=== PATIENT | male | born 1995 | race Asian ===

== ENCOUNTER 2020-07-03 02:00 | Emergency (ER) | payer OTHER ==
[~2020-07-03] VITALS: Ht 172.7 cm; Wt 119.3 kg
[2020-07-03 02:25] VITALS: BP 180/70
--- NOTE | 2020-07-03 02:39 | NUR ---
PT AMBULATED TO LOBBY TO A/W BED
[2020-07-03] MEDS ORDERED: KETOROLAC 30 MG/ML VIAL IM ONE (03:00)
--- NOTE | 2020-07-03 03:00 | NUR ---
ERMD ASSESSING PATIENR IN LOBBY.
--- NOTE | 2020-07-03 03:26 | NUR ---
PT AMBULATED TO CHAIR A.
--- NOTE | 2020-07-03 03:34 | NUR ---
PATIENT GIVEN TORADL IM FOR 5/10 R LEG PAIN. PATIENT TOLERATED WELL.
--- NOTE | 2020-07-03 04:06 | NUR ---
PT TAKEN TO ULTRASOUND VIA WHEELCHAIR.
--- NOTE | 2020-07-03 04:51 | NUR ---
PT RETURNED FROM ULTRASOUND VIA WHEELCHAIR TO CHAIR A.
[2020-07-03 06:00] VITALS: BP 156/88
--- NOTE | 2020-07-03 06:00 | NUR ---
Patient discharged with v/s stable. Written and verbal after care instructions given and explained. Patient verbalized understanding. Ambulatory with steady gait. All questions addressed prior to discharge. Advised to follow up with PMD.
== END 2020-07-03 06:00 | disposition home or self-care (01) ==
LOC: MED 02:00
DX: M25.561 Pain in right knee (principal)
CPT/HCPCS: 93971; 96372; 99284; J1885

== ENCOUNTER 2021-11-30 01:33 | Emergency (ER) | payer OTHER ==
[~2021-11-30] VITALS: Ht 172.7 cm; Wt 118.4 kg
[2021-11-30 01:41] VITALS: BP 182/125
--- NOTE | 2021-11-30 01:47 | NUR ---
PATIENT AMBULATORY TO BED
--- NOTE | 2021-11-30 01:56 | NUR ---
Patient BIB by family/friend. C/O right knee pain x 3 days. Patient reported, had right knee pain for 2-3 days, denied injury or trama to right knee, twisted his right ankle before.
--- NOTE | 2021-11-30 02:12 | NUR ---
Dr. Feng examining patient.
--- NOTE | 2021-11-30 02:13 | NUR ---
ER MD AT BEDSIDE EXAMINING PATIENT
[2021-11-30] MEDS ORDERED: KETOROLAC 30 MG/ML VIAL IM ONE (02:15)
--- NOTE | 2021-11-30 03:19 | NUR ---
Patient discharged with v/s stable. Written and verbal after care instructions given and explained for Acute Knee Pain, Adult. Patient verbalized understanding. Ambulatory with steady gait. All questions addressed prior to discharge. Advised to follow up with PMD.
== END 2021-11-30 03:19 | disposition home or self-care (01) ==
LOC: MED 01:33
DX: M25.561 Pain in right knee (principal)
CPT/HCPCS: 73562; 96372; 99283; J1885; Q0092

== ENCOUNTER 2021-12-04 23:06 | Emergency (ER) | payer OTHER ==
[~2021-12-04] VITALS: Ht 172.7 cm; Wt 120.4 kg
[2021-12-04 23:41] VITALS: BP 172/143
--- NOTE | 2021-12-04 23:54 | NUR ---
W/C TO BED 08.
--- NOTE | 2021-12-05 00:55 | NUR ---
ERMD AT BEDSIDE
--- NOTE | 2021-12-05 01:00 | NUR ---
26 Y/O MALE BIB SELF FOR RT KNEE PAIN ON/OFF FOR SEVERAL WEEKS, PT STATES HE CAME HERE A COUPLE WEEKS AGO FOR SAME THING. PT STATES A COUPLE ONTHS AGO HE FELL AT [facility] .PT STATES IT HURTS TO WALK , PAIN8/10. PT STATES HE ELEVATED , AND ICED KNEE BUT PAIN WAS TOO GREAT. RT KNEE HAS SLIGHT NON PITTING SWELLING. DENIES N/V/D; SKIN IS PINK/WARM/DRY; AAOX4 WITH EVEN AND STEADY GAIT; PMH:SPRAINED ANKLES, BURSITIS
[2021-12-05] MEDS: HYDROcodone/APAP 5/325 MG 1 TAB TAB PO ONE (01:10)
[2021-12-05] MEDS: KETOROLAC 30 MG/ML VIAL IM ONE (01:12)
--- NOTE | 2021-12-05 01:21 | NUR ---
PT TO CT
--- NOTE | 2021-12-05 01:31 | NUR ---
PT BACK FROM CT
[2021-12-05] MEDS ORDERED: NAPR-54 PO ×2 (03:39→03:40)
[2021-12-05 03:45] VITALS: BP 164/92
--- NOTE | 2021-12-05 03:45 | NUR ---
Patient discharged with v/s stable. Written and verbal after care instructions given and explained. Patient alert, oriented and verbalized understanding of instructions. Ambulatory with steady gait WITH CRUTCHES. All questions addressed prior to discharge. ID band removed. Patient advised to follow up with PMD. Rx of NAPROSYN given. Opportunity to ask questions provided and answered.
== END 2021-12-05 03:45 | disposition home or self-care (01) ==
LOC: MED 23:06
DX: S83.91XA Sprain of unspecified site of right knee, initial encounter (principal); Z72.89 Other problems related to lifestyle; W18.30XA Fall on same level, unspecified, initial encounter; Y93.89 Activity, other specified; Y92.89 Other specified places as the place of occurrence of the external cause; Y99.8 Other external cause status
CPT/HCPCS: 73700; 96372; 99285; J1885

== ENCOUNTER 2022-08-25 13:40 | Emergency (ER) | payer OTHER ==
[~2022-08-25] VITALS: Ht 175.3 cm; Wt 90.7 kg
[~2022-08-25 13:40] MED LIST: NAPR-54 PO
[2022-08-25 13:41] VITALS: BP 155/99
[2022-08-25] MEDS ORDERED: IBUPROFEN 600 MG TAB PO ONE (15:40)
--- NOTE | 2022-08-25 16:00 | NUR ---
NA FOR MEDS 1600
[2022-08-25] MEDS ORDERED: LID5T TP (16:24)
[2022-08-25] MEDS ORDERED: IBUP-2213 PO (16:24)
[2022-08-25] MEDS ORDERED: CYCL-711 PO (16:24)
--- NOTE | 2022-08-25 16:58 | NUR ---
Patient discharged with v/s stable. Written and verbal after care instructions given and explained. Patient alert, oriented and verbalized understanding of instructions. Ambulatory with steady gait. All questions addressed prior to discharge. ID band removed. Patient advised to follow up with PMD. Rx of FLEXERIL, IBUPROFEN, LIDOCAINE (SENT) given. Patient educated on indication of medication including possible reaction and side effects. Opportunity to ask questions provided and answered.
[2022-08-25 17:00] VITALS: BP 155/99
== END 2022-08-25 16:58 | disposition home or self-care (01) ==
LOC: MED 13:40
DX: S30.0XXA Contusion of lower back and pelvis, initial encounter (principal); Z79.1 Long term (current) use of non-steroidal anti-inflammatories (NSAID); V89.2XXA Person injured in unspecified motor-vehicle accident, traffic, initial encounter; Y93.89 Activity, other specified; Y92.410 Unspecified street and highway as the place of occurrence of the external cause; Y99.8 Other external cause status
CPT/HCPCS: 72100; 99283

== ENCOUNTER 2022-12-11 22:12 | Emergency (ER) | payer OTHER ==
[~2022-12-11] VITALS: Ht 172.7 cm; Wt 117.9 kg
[~2022-12-11 22:12] MED LIST changes: +CYCL-711 PO; +IBUP-2213 PO; +LID5T TP
--- NOTE | 2022-12-11 22:30 | NUR ---
Pt to bed 4
[2022-12-11 22:40] VITALS: BP 171/111; PULSE 82; RESP 17; O2SAT 96
--- NOTE | 2022-12-11 22:45 | NUR ---
ER physician assessing patient
--- NOTE | 2022-12-11 22:50 | NUR ---
Patient resting in bed, A/Ox4, chest rise and fall symmetrical, no s/s of distress, on monitor.
[2022-12-11] MEDS ORDERED: KETOROLAC 30 MG/ML VIAL IVP ONE (23:15)
[2022-12-11 23:20] LABS: APPEARANCE,URINE CLEAR (CLEAR); BILIRUBIN,URINE NEGATIVE (NEGATIVE); BLOOD, URINE 2+ (NEGATIVE); COLOR,URINE YELLOW (YELLOW); LEUKOCYTE ESTERASE ,URINE NEGATIVE (NEGATIVE); NITRITE, URINE NEGATIVE (NEGATIVE); UGLUCOSE NEGATIVE (NEGATIVE)
[2022-12-11 23:29] LABS: RBC,URINE 11-20 (MOD) /HPF (0-5)
[2022-12-11 23:32] LABS: BASOPHILS # (AUTO) 0.1 K/uL (0.00-0.22); EOSINOPHILS # (AUTO) 0.3 K/uL (0-0.4); EOSINOPHILS % (AUTO) 2.9 % (0.0-4.0); HEMATOCRIT 49.2 % (36-52); HEMOGLOBIN 16.6 g/dL (12.0-18.0); LYMPHOCYTES % (AUTO) 22.5 % (20.5-51.1); MEAN CORPUSCULAR HEMOGLOBIN 29 pg (27-31); MEAN CORPUSCULAR HGB CONC 34 g/dL (33-37); MEAN CORPUSCULAR VOLUME 85.3 fL (80-94); MONOCYTES # (AUTO) 0.9 K/uL (0.8-1.0); MONOCYTES % (AUTO) 9.6 % (1.7-9.3); NEUTROPHILS # (AUTO) 5.8 K/uL (1.8-7.7); PLATELET COUNT (AUTO) 244 K/uL (140-450); RED BLOOD CELL COUNT(AUTO) 5.78 MIL/uL (4.20-6.10); RED CELL DISTRIBUTION WIDTH 12.7 % (11.6-13.7); WHITE BLOOD COUNT (AUTO) 9.1 K/uL (4.8-10.8)
[2022-12-11] MEDS ORDERED: KETOROLAC 30 MG/ML VIAL IM ONE (23:45)
[2022-12-12 00:20] LABS: ANION GAP 13.5 (8-16); CARBON DIOXIDE 27.4 mmol/L (21-32); CREATININE 1.2 mg/dL (0.6-1.3); POTASSIUM 3.9 mmol/L (3.5-5.1)
[2022-12-12 00:26] LABS: ALBUMIN 3.9 g/dL (3.4-5.0); TOTAL BILIRUBIN 0.6 mg/dL (0.0-1.0)
--- NOTE | 2022-12-12 00:30 | NUR ---
Patient resting in bed, A/Ox4, chest rise and fall symmetrical, no c/o pain or s/s of distress, on monitor.
[2022-12-12] MEDS ORDERED: CEPH-588 PO (01:21)
[2022-12-12] MEDS ORDERED: TAMS0.4C96 PO (01:21)
[2022-12-12] MEDS ORDERED: IBUP-2213 PO (01:21)
[2022-12-12 01:50] VITALS: BP 128/74; PULSE 85; RESP 16; TEMP 98.1; O2SAT 99
== END 2022-12-12 01:50 | disposition home or self-care (01) ==
LOC: MED 22:12
DX: N23 Unspecified renal colic (principal); N12 Tubulo-interstitial nephritis, not specified as acute or chronic; I10 Essential (primary) hypertension; Z79.899 Other long term (current) drug therapy
CPT/HCPCS: 36415; 74176; 80053; 81001; 85025; 96372; 99285; J1885

== ENCOUNTER 2023-06-29 17:48 | Emergency (ER) | payer OTHER ==
[~2023-06-29] VITALS: Ht 172.7 cm; Wt 117.0 kg
[~2023-06-29 17:48] MED LIST changes: +CEPH-588 PO; +TAMS0.4C96 PO
[2023-06-29 18:38] VITALS: BP 143/118; PULSE 92; RESP 18; TEMP 98.1; O2SAT 96
[2023-06-29] MEDS ORDERED: PRED20TA5 PO (19:27)
[2023-06-29] MEDS ORDERED: LORA10TA60 PO (19:27)
[2023-06-29] MEDS ORDERED: DIPH25TA53 PO (19:27)
[2023-06-29] MEDS ORDERED: FAMOTIDINE 20 MG TAB PO ONE (19:30)
[2023-06-29] MEDS ORDERED: predniSONE 20 MG TAB PO ONE (19:30)
== END 2023-06-29 19:53 | disposition home or self-care (01) ==
LOC: MED 17:48
DX: L50.9 Urticaria, unspecified (principal); R03.0 Elevated blood-pressure reading, without diagnosis of hypertension; Z79.899 Other long term (current) drug therapy; Z79.1 Long term (current) use of non-steroidal anti-inflammatories (NSAID); Z79.2 Long term (current) use of antibiotics
CPT/HCPCS: 99283; J7512

== ENCOUNTER 2023-12-29 23:36 | Emergency (ER) | payer OTHER ==
[~2023-12-29] VITALS: Ht 172.7 cm; Wt 118.8 kg
[~2023-12-29 23:36] MED LIST changes: +DIPH25TA53 PO; +LORA10TA60 PO; +NAPR-337 PO; -NAPR-54 PO; +PRED20TA5 PO
[2023-12-29 23:37] VITALS: BP 211/140; PULSE 78; RESP 16; TEMP 98.6; O2SAT 97
[2023-12-30 00:48] LABS: BILIRUBIN,URINE NEGATIVE (NEGATIVE); BLOOD, URINE 3+ (NEGATIVE); COLOR,URINE YELLOW (YELLOW); LEUKOCYTE ESTERASE ,URINE NEGATIVE (NEGATIVE); NITRITE, URINE NEGATIVE (NEGATIVE); PROTEIN,URINE 1+ (NEGATIVE); UGLUCOSE NEGATIVE (NEGATIVE); UROBILINOGEN,URINE 0.2 EU/dL (0.2 - 1)
[2023-12-30 00:53] LABS: APPEARANCE,URINE SLIGHTLY HAZY (CLEAR)
[2023-12-30 00:55] LABS: BASOPHILS # (AUTO) 0.1 K/uL (0.00-0.22); BASOPHILS % (AUTO) 2.1 % (0.0-2.0); EOSINOPHILS # (AUTO) 0.2 K/uL (0-0.4); EOSINOPHILS % (AUTO) 3.4 % (0.0-4.0); HEMATOCRIT 50.3 % (36-52); HEMOGLOBIN 17.3 g/dL (12.0-18.0); LYMPHOCYTES % (AUTO) 13.9 % (20.5-51.1); MEAN CORPUSCULAR HEMOGLOBIN 30 pg (27-31); MEAN CORPUSCULAR HGB CONC 34 g/dL (33-37); MEAN CORPUSCULAR VOLUME 85.9 fL (80-94); MONOCYTES # (AUTO) 0.6 K/uL (0.8-1.0); NEUTROPHILS # (AUTO) 4.9 K/uL (1.8-7.7); NEUTROPHILS % (AUTO) 71.6 % (42.2-75.2); PLATELET COUNT (AUTO) 171 K/uL (140-450); RED BLOOD CELL COUNT(AUTO) 5.86 MIL/uL (4.20-6.10); RED CELL DISTRIBUTION WIDTH 12.6 % (11.6-13.7); WHITE BLOOD COUNT (AUTO) 6.9 K/uL (4.8-10.8)
[2023-12-30 00:58] LABS: BACTERIA,URINE 1+ /HPF (None Seen); RBC,URINE 11-20 (MOD) /HPF (0-5); WBC,URINE 0-5 /HPF (0-5)
[2023-12-30 00:59] LABS: MUCUS,URINE None Seen /LPF (None Seen); SQUAMOUS EPITHELIAL CELL,UR 0-3 (FEW) /LPF (0-3 (FEW))
[2023-12-30 01:06] LABS: ANION GAP 12.2 (8-16); CALCIUM 8.8 mg/dL (8.5-10.1); CARBON DIOXIDE 27.3 mmol/L (21-32); CREATININE 1.5 mg/dL (0.6-1.3); POTASSIUM 3.5 mmol/L (3.5-5.1)
[2023-12-30] MEDS ORDERED: TAMS0.4C96 PO (02:33)
[2023-12-30] MEDS: KETOROLAC 30 MG/ML VIAL IM ONE (02:55)
[2023-12-30 03:00] VITALS: BP 181/127; PULSE 84; RESP 15; TEMP 98.6; O2SAT 96
== END 2023-12-30 03:00 | disposition home or self-care (01) ==
LOC: MED 23:36
DX: N23 Unspecified renal colic (principal); I10 Essential (primary) hypertension; Z79.1 Long term (current) use of non-steroidal anti-inflammatories (NSAID); Z79.2 Long term (current) use of antibiotics; Z79.899 Other long term (current) drug therapy
CPT/HCPCS: 36415; 80048; 81001; 85025; 87086; 96372; 99283; J1885

== ENCOUNTER 2024-02-19 09:04 | Emergency (ER) | payer OTHER ==
[~2024-02-19] VITALS: Ht 172.7 cm; Wt 117.9 kg
[2024-02-19 09:24] VITALS: BP 210/156; PULSE 90; RESP 20; TEMP 97.9; O2SAT 98
--- NOTE | 2024-02-19 09:33 | NUR ---
PT AMB TO BED 5
--- NOTE | 2024-02-19 10:00 | NUR ---
PATIENT PRESENTS TO ED WITH TESTICULAR PAIN X 1 DAY . PT STATES THAT THEU WPKE UP WITH TESTICULAR PRESSURE. DENIES N/V/D; SKIN IS PINK/WARM/DRY; AAOX4 WITH EVEN AND STEADY GAIT; LUNGS CLEAR BL; HR EVEN AND REGULAR; PT DENIES ANY FEVER, CP, SOB, OR COUGH AT THIS TIME; PATIENT STATES PAIN OF 0/10 AT THIS TIME; VSS; PATIENT POSITIONED FOR COMFORT; HOB ELEVATED; BEDRAILS UP X2; BED DOWN. ER MD MADE AWARE OF PT STATUS. CALL LIGHT WITHIN REACH NKA
[2024-02-19] MEDS: KETOROLAC 30 MG/ML VIAL IM ONE (10:18)
--- NOTE | 2024-02-19 10:32 | NUR ---
ULTRASOUND AT BEDSIDE
--- NOTE | 2024-02-19 10:33 | NUR ---
PTS BLOOD PRESSURE IS 202/135 ERMD MADE AWARE.
[2024-02-19 11:11] LABS: BILIRUBIN,URINE NEGATIVE (NEGATIVE); BLOOD, URINE 3+ (NEGATIVE); COLOR,URINE YELLOW (YELLOW); LEUKOCYTE ESTERASE ,URINE NEGATIVE (NEGATIVE); NITRITE, URINE NEGATIVE (NEGATIVE); PROTEIN,URINE 1+ (NEGATIVE); UGLUCOSE NEGATIVE (NEGATIVE); UROBILINOGEN,URINE 0.2 EU/dL (0.2 - 1)
[2024-02-19 11:20] LABS: APPEARANCE,URINE HAZY (CLEAR); WBC,URINE 0-5 /HPF (0-5)
[2024-02-19 11:21] LABS: BACTERIA,URINE OCCASSIONAL /HPF (None Seen); RBC,URINE >20 (MANY) /HPF (0-5); SQUAMOUS EPITHELIAL CELL,UR 0-3 (FEW) /LPF (0-3 (FEW))
[2024-02-19] MEDS: hydroCHLOROthiazide 25 MG TAB PO ONE (11:30)
[2024-02-19 11:33] VITALS: BP 182/118; PULSE 98; RESP 18; TEMP 97.9; O2SAT 98
[2024-02-19] MEDS ORDERED: HYDR12.51 PO (12:06)
[2024-02-19] MEDS ORDERED: NAPR-1704 PO (12:06)
--- NOTE | 2024-02-19 12:23 | NUR ---
Patient discharged with v/s stable. Written and verbal after care instructions FOR RENAL COLIC, TESTICULAR SELF EXAM AND HTN given and explained. Patient alert, oriented and verbalized understanding of instructions. Ambulatory with steady gait. All questions addressed prior to discharge. ID band removed. Patient advised to follow up with PMD. Rx of NAPROXEN AND HYDROCHLOROTHIAZIDE given. Opportunity to ask questions provided and answered.
== END 2024-02-19 12:23 | disposition home or self-care (01) ==
LOC: MED 09:04
DX: N50.812 Left testicular pain (principal); N50.811 Right testicular pain; R31.9 Hematuria, unspecified; I10 Essential (primary) hypertension; Z87.442 Personal history of urinary calculi; Z79.899 Other long term (current) drug therapy
CPT/HCPCS: 76870; 81001; 87086; 87491; 96372; 99285; J1885; Q0092